=== PATIENT | female | born 1950 | race Caucasian/White ===

== ENCOUNTER 2023-04-29 10:37 | Outpatient (CLI) | payer MEDICARE | END 2023-04-29 10:38 | disposition home or self-care (01) | LOC: BICULT 10:37 | PROVIDERS: ATTEND Family Medicine | DX: Z12.31 Encounter for screening mammogram for malignant neoplasm of breast (principal); N95.0 Postmenopausal bleeding | CPT/HCPCS: 76856; 77063; 77067 ==

== ENCOUNTER 2024-09-22 15:03 | Outpatient (CLI) | payer MEDICARE | END 2024-09-22 15:04 | disposition home or self-care (01) | LOC: BICCT 15:03 | PROVIDERS: ATTEND Nurse Practitioner Family | DX: C54.1 Malignant neoplasm of endometrium (principal); N85.8 Other specified noninflammatory disorders of uterus; K76.9 Liver disease, unspecified; K80.20 Calculus of gallbladder without cholecystitis without obstruction | CPT/HCPCS: 36415; 71260; 74177; 82565 ==